=== PATIENT | female | born 1945 | race Caucasian/White ===

== ENCOUNTER 2020-08-20 01:07 | Emergency (ER) | payer MEDICARE, OTHER ==
[~2020-08-20] VITALS: Ht 162.6 cm; Wt 89.8 kg
--- NOTE | 2020-08-20 01:24 | ED Fall/Injury ---
General Chief Complaint: Trauma-Non Activation Stated Complaint: FALL Source: patient (DIFFICULT HISTORIAN) History of Present Illness Date Seen by Provider: August 20, 2020 Time Seen by Provider: 01:07 Initial Comments PT ARRIVES VIA EMS--PT IS HERE VISITING FAMILY FOR A GRADUATION--PT LIVES IN [place], [place] PT STATES SHE WAS PUTTING LOTION ON HER LEGS, AND SPILLED LOTION ON THE FLOOR AND WAS TRYING TO CLEAN IT UP, AND SLIPPED ON A RUG AND FELL, LANDING MOSTLY ON HER RIGHT SIDE HIT HER HEAD ON A SUITCASE, BUT DENIES LOSS OF CONSCIOUSNESS. EVENT WAS NOT WITNESSED, AND IS UNKNOWN HOW LONG SHE LAID OR THE FLOOR OR WHAT TIME THIS HAPPENED TONIGHT PT C/O PAIN TO NECK-MOSTLY THE RIGHT SIDE--CERVICAL COLLAR IS IN PLACE BY EMS. HAS CHRONIC NECK PAIN C/O MID AND LOWER BACK PAIN --PT WITH CHRONIC BACK PAIN AND REPORTS THAT SHE HAS HAD 4 OR 5 PRIOR BACK SURGERIES C/O RIGHT HIP PAIN --NO PRIOR SURGERY TO RIGHT HIP. HAS PRIOR LEFT HIP FRACTURE WITH PINNING. DENIES PARESTHESIAS OR MOTOR DEFICITS DENIES HEADACHE NO VISION CHANGES NO ABDOMINAL PAIN NO NAUSEA/VOMITING NO CHEST PAIN NO SHORTNESS OF BREATH PT REPORTS SHE HAS FALLEN 4-5 TIMES IN THE LAST 6 MONTHS, USES A CANE PT IS ON MORPHINE DAILY FOR CHRONIC PAIN COMPLAINTS, WELL BACLOFEN. Allergies and Home Medications Allergies Coded Allergies: fentanyl (Verified Allergy, Unknown, 08/20/20) nalbuphine (Verified Allergy, Unknown, 08/20/20) Patient Home Medication List Home Medication List Reviewed: Yes Review of Systems Review of Systems Constitutional: no symptoms reported Eyes: No Symptoms Reported Ears, Nose, Mouth, Throat: no symptoms reported Respiratory: no symptoms reported Cardiovascular: no symptoms reported Gastrointestinal: no symptoms reported Genitourinary: no symptoms reported Musculoskeletal: see HPI Skin: no symptoms reported Psychiatric/Neurological: No Symptoms Reported Past Mmstiwo-Dwhpul-Ppvlef Hx Past Med/Social Hx: Reviewed and Corrections made Patient Social History Alcohol Use: Denies Use Drug of Choice: DENIES Smoking Status: Never a Smoker Past Medical History Surgeries: Yes Bowel Surgery, Gallbladder, Orthopedic Respiratory: Yes (STATES SHE NEVER SMOKED; SARCOIDOSIS) COPD Cardiac: Yes High Cholesterol, Hypertension 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 Genitourinary: No Gastrointestinal: Yes (HAS PERMANENT ILEOSTOMY FOR DIVERTICULITIS AND BOWEL OBSTRUCTION) Obstructive Bowel, Diverticulosis Musculoskeletal: Yes (MULTIPLE BACK SURGERIES; L HIP FX/PINNING;L ARM FX/PLATE; FREQ FALLS/CANE) Arthritis, Chronic Back Pain (AND NECK PAIN ), Fractures, Gout Endocrine: Yes (OBESITY; LOW MAGNESIUM) Hypothyroidsim HEENT: Yes Hearing Impairment: Hard of Hearing, Bilateral Hearing Aide Cancer: No Family Medical History PAST SURGICAL HISTORY: -CHOLECYSTECTOMY -PERMANENT ILEOSTOMY -4 OR 5 BACK SURGERIES -LEFT ARM FRACTURE WITH PLATES -LEFT HIP FRACTURE WITH PINNING Physical Exam Vital Signs Vital Signs - First Documented 08/20/20 01:07 Temp 36.6 Pulse 75 Resp 16 B/P (MAP) 173/89 (117) Pulse Ox 100 O2 Delivery Room Air Capillary Refill : Height, Weight, BMI Height: '" Weight: lbs. oz. kg; BMI Method: General Appearance: WD/WN, no apparent distress, obese, other (DOES NOT APPEAR TO BE IN ANY DISCOMFORT OR DISTRESS,. PT IS VERY TALKATIVE. ) HEENT: PERRL/EOMI, other (BILATERAL HEARING AIDS IN PLACE. EDENTULOUS) Neck: other (IN CERVICAL COLLAR ON ARRIVAL) Respiratory: normal breath sounds, no respiratory distress, no accessory muscle use, other (DIFFUSE CHEST WALL TENDERNESS) Gastrointestinal: normal bowel sounds, soft; No distended; tenderness (DIFFUSE MID AND UPPER ABDOMINAL TENDERNESS. ILEOSTOMY IN RLQ PRESENT AND APPEARS INTACT WITH NORMAL LIQUID STOOL) Extremities: other (TENDERNESS TO RIGHT HIP. NO SHORTENING OR ROTATION. DISTAL MOTOR/SENSORY/VASCULAR INTACT. UNABLE TO DETERMINE IF EDEMA IS PRESENT DUE TO BODY HABITUS) Neurologic/Psychiatric: no motor/sensory deficits, alert, normal mood/affect, oriented x 3 Skin: normal color, warm/dry, other (EXTENSIVE SORES/SCARS/SCABS TO ARMS, LEGS AND ESPECIALLY TO ABDOMEN--TYPICAL APPEARANCE OF "PICKING" . NO EVIDENCE OF ACUTE TRAUMA FROM THE FALL TONIGHT, ANYWHERE ON BODY--NO BRUISING, ABRASIONS,LACERATIONS, ETC. ) Fam Coma Score Best Eye Response: (4) Open Spontaneously Best Verbal Response: (5) Oriented Best Motor Response: (6) Obeys Commands Fam Total: 15 Progress/Results/Core Measures Results/Orders Lab Results Laboratory Tests Test 08/20/20 01:25 08/20/20 03:00 Range/Units White Blood Count 5.2 4.3-11.0 10^3/uL Red Blood Count 3.59 L 3.80-5.11 10^6/uL Hemoglobin 11.2 L 11.5-16.0 g/dL Hematocrit 35 35-52 % Mean Corpuscular Volume 98 80-99 fL Mean Corpuscular Hemoglobin 31 25-34 pg Mean Corpuscular Hemoglobin Concent 32 32-36 g/dL Red Cell Distribution Width 13.5 10.0-14.5 % Platelet Count 201 130-400 10^3/uL Mean Platelet Volume 9.8 9.0-12.2 fL Immature Granulocyte % (Auto) 0 % Neutrophils (%) (Auto) 40 L 42-75 % Lymphocytes (%) (Auto) 44 12-44 % Monocytes (%) (Auto) 11 0-12 % Eosinophils (%) (Auto) 6 0-10 % Basophils (%) (Auto) 0 0-10 % Neutrophils # (Auto) 2.1 1.8-7.8 10^3/uL Lymphocytes # (Auto) 2.3 1.0-4.0 10^3/uL Monocytes # (Auto) 0.6 0.0-1.0 10^3/uL Eosinophils # (Auto) 0.3 0.0-0.3 10^3/uL Basophils # (Auto) 0.0 0.0-0.1 10^3/uL Immature Granulocyte # (Auto) 0.0 0.0-0.1 10^3/uL Prothrombin Time 13.2 12.2-14.7 SEC INR Comment 1.0 0.8-1.4 Activated Partial Thromboplast Time 28 24-35 SEC Sodium Level 139 135-145 MMOL/L Potassium Level 4.2 3.6-5.0 MMOL/L Chloride Level 105 98-107 MMOL/L Carbon Dioxide Level 24 21-32 MMOL/L Anion Gap 10 5-14 MMOL/L Blood Urea Nitrogen 9 7-18 MG/DL Creatinine 0.77 0.60-1.30 MG/DL Estimat Glomerular Filtration Rate > 60 BUN/Creatinine Ratio 12 Glucose Level 89 70-105 MG/DL Calcium Level 9.5 8.5-10.1 MG/DL Corrected Calcium 9.7 8.5-10.1 MG/DL Magnesium Level 1.5 L 1.6-2.4 MG/DL Total Bilirubin 0.3 0.1-1.0 MG/DL Aspartate Amino Transf (AST/SGOT) 29 5-34 U/L Alanine Aminotransferase (ALT/SGPT) 15 0-55 U/L Alkaline Phosphatase 100 40-136 U/L Myoglobin 177.2 H 10.0-92.0 NG/ML Total Protein 6.8 6.4-8.2 GM/DL Albumin 3.7 3.2-4.5 GM/DL Amylase Level 23 L 25-125 U/L Lipase 5 L 8-78 U/L Urine Color YELLOW Urine Clarity CLEAR Urine pH 6.5 5-9 Urine Specific Ione 1.015 L 1.016-1.022 Urine Protein NEGATIVE NEGATIVE Urine Glucose (UA) NEGATIVE NEGATIVE Urine Ketones NEGATIVE NEGATIVE Urine Nitrite NEGATIVE NEGATIVE Urine Bilirubin NEGATIVE NEGATIVE Urine Urobilinogen 0.2 < = 1.0 MG/DL Urine Leukocyte Esterase 1+ H NEGATIVE Urine RBC (Auto) TRACE-I NEGATIVE Urine RBC 0-2 /HPF Urine WBC 2-5 /HPF Urine Squamous Epithelial Cells 0-2 /HPF Urine Crystals NONE /LPF Urine Bacteria TRACE /HPF Urine Casts NONE /LPF Urine Mucus NEGATIVE /LPF Urine Culture Indicated YES Micro Results Microbiology 08/20/20 Urine Culture - Final, Complete 3 or more isolates My Orders Orders - STEVE CHACON DO Ed Iv/Invasive Line Start (08/20/20 01:16) Ekg Tracing (08/20/20:16) Monitor-Rhythm Ecg Trace Only (08/20/20 01:16) Ct Head/Cervical Spine Wo (08/20/20:16) Chest 1 View, Ap/Pa Only (08/20/20:16) Pelvis With Right Hip 2-3views (08/20/20 01:16) Amylase (08/20/20 01:16) Cbc With Automated Diff (08/20/20:16) Comprehensive Metabolic Panel (08/20/20:16) Lipase (08/20/20:16) Magnesium (08/20/20:16) Protime With Inr (08/20/20:16) Partial Thromboplastin Time (08/20/20 01:16) Ua Culture If Indicated (08/20/20 01:16) Myoglobin Serum (08/20/20 01:16) Ct Chest/Abdomen/Pelvis W (08/20/20 01:16) Ct Thoracic/Lumbar Spine Wo (08/20/20 01:16) Urine Culture (08/20/20 03:00) Ketorolac Injection (Toradol Injection) (08/20/20 04:15) Medications Given in ED Vital Signs/I&O 08/20/20 08/20/20 08/20/20 01:07 01:07 04:50 Temp 36.6 36.6 36.6 Pulse 75 75 80 Resp 16 16 16 B/P (MAP) 173/89 (117) 173/89 (117) 128/108 (117) Pulse Ox 100 100 O2 Delivery Room Air Room Air Progress Progress Note : Progress Note CERVICAL COLLAR REMOVED AFTER RECEIVING CT SCAN REPORT PT COMPLAINS OF PAIN ALL OVER WITH ANY MOVEMENTS PT VOLUNTARILY ROLLED ONTO HER RIGHT SIDE TO GET ON AND OFF THE BEDPAN ( SIDE OF REPORTED PAIN/INJURY WHEN SHE FELL TONIGHT) UNEVENTFUL ER STAY Initial ECG Impression Date: August 20, 2020 Initial ECG Impression Time: 01:18 Initial ECG Rate: 67 Initial ECG Rhythm: Normal Sinus (IVCD/INCOMPLETE RBBB) Initial ECG Comparisson: No Previous ECG Available Diagnostic Imaging Comments CXR--NO ACUTE PROCESS, PENDING RADIOLOGIST REVIEW PELVIS AND RIGHT HIP XRAYS--NO ACUTE PROCESS, LEFT HIP HARDWARE IN PLACE. 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 CT THORACIC/LUMBAR SPINE--PER [facility] VIA FAX AT [phone] NO ACUTE PROCESS, SEVERE DEGENERATIVE SPONDYLOSIS CT CHEST/ABDOMEN/PELVIS--PER [facility] VIA FAX AT [id number] NO ACUTE TRAUMATIC INJURY TO CHEST/ABDOMEN/PELVIS, PARASTOMAL HERNIA WITH EXCESS SMALL BOWEL Reviewed: Reviewed by Me Departure Impression Primary Impression: S/P FALL FROAM STANDING Additional Impressions: Minor head injury without loss of consciousness CHEST WALL AND ABDOMINAL CONTUSION CERVICAL SPINE STRAIN EXACERBATION OF CRONIC NECK PAIN Back strain Exacerbation of chronic back pain Contusion of right hip Disposition: HOME, SELF-CARE Condition: Stable Departure-Patient Inst. Referrals: UNKNOWN (PCP) Primary Care Physician Patient Instructions: Back Muscle Strain (DC), CHEST CONTUSION, CHRONIC PAIN, Cervical Muscle Strain (DC), Contusion (DC), Minor Head Injury (DC), Preventing Falls, Preventing Falls in the Older Adult Add. Discharge Instructions: ALTERNATE ICE AND HEAT TO SORE AREAS AT 20 MINUTE INTERVALS USE YOUR CANE AT ALL TIMES TAKE YOUR REGULAR MORPHINE PRESCRIBED FOR PAIN FOLLOW UP WITH YOUR DR IN 1 WEEK IF NO BETTER All discharge instructions reviewed with patient and/or family. Voiced understanding. STEVE CHACON DO August 20, 2020 01:24
[2020-08-20 01:30] LABS: BASOPHILS % (AUTO) 0 % (0-10); EOSINOPHILS # (AUTO) 0.3 10^3/uL (0.0-0.3); EOSINOPHILS % (AUTO) 6 % (0-10); HEMATOCRIT 35 % (35-52); HEMOGLOBIN 11.2 g/dL (11.5-16.0); LYMPHOCYTES # (AUTO) 2.3 10^3/uL (1.0-4.0); LYMPHOCYTES % (AUTO) 44 % (12-44); MEAN CORPUSCULAR HEMOGLOBIN 31 pg (25-34); MEAN CORPUSCULAR HGB CONC 32 g/dL (32-36); MEAN CORPUSCULAR VOLUME 98 fL (80-99); MEAN PLATELET VOLUME 9.8 fL (9.0-12.2); MONOCYTES # (AUTO) 0.6 10^3/uL (0.0-1.0); MONOCYTES % (AUTO) 11 % (0-12); NEUTROPHILS # (AUTO) 2.1 10^3/uL (1.8-7.8); NEUTROPHILS % (AUTO) 40 % (42-75); PLATELET COUNT 201 10^3/uL (130-400); WHITE BLOOD COUNT 5.2 10^3/uL (4.3-11.0)
[2020-08-20 01:47] LABS: ALBUMIN 3.7 GM/DL (3.2-4.5)
[2020-08-20 01:48] LABS: CHLORIDE 105 MMOL/L (98-107); POTASSIUM 4.2 MMOL/L (3.6-5.0); PROTHROMBIN TIME PATIENT 13.2 SEC (12.2-14.7); SODIUM 139 MMOL/L (135-145)
[2020-08-20 01:49] LABS: AMYLASE 23 U/L (25-125); CALCIUM 9.5 MG/DL (8.5-10.1)
[2020-08-20 01:50] LABS: GLUCOSE 89 MG/DL (70-105); TOTAL PROTEIN 6.8 GM/DL (6.4-8.2)
[2020-08-20 01:51] LABS: CARBON DIOXIDE 24 MMOL/L (21-32)
[2020-08-20 01:52] LABS: BILIRUBIN,TOTAL 0.3 MG/DL (0.1-1.0)
[2020-08-20 01:53] LABS: ALKALINE PHOSPHATASE 100 U/L (40-136)
[2020-08-20 01:54] LABS: CREATININE SERUM 0.77 MG/DL (0.60-1.30); GFR ESTIMATED > 60
[2020-08-20 01:55] LABS: BUN/CREATININE RATIO 12
[2020-08-20 01:56] LABS: ALANINE AMINOTRANSFERASE 15 U/L (0-55); MAGNESIUM 1.5 MG/DL (1.6-2.4)
[2020-08-20 01:58] LABS: LIPASE 5 U/L (8-78)
[2020-08-20 03:07] LABS: BILIRUBIN,URINE NEGATIVE (NEGATIVE); CLARITY,URINE CLEAR; COLOR,URINE YELLOW; GLUCOSE, URINE (UA) NEGATIVE (NEGATIVE); KETONES,URINE NEGATIVE (NEGATIVE); LEUKOCYTE ESTERASE ,URINE 1+ (NEGATIVE); NITRITE,URINE NEGATIVE (NEGATIVE); PH,URINE 6.5 (5-9); PROTEIN,URINE NEGATIVE (NEGATIVE)
[2020-08-20 03:15] LABS: BACTERIA,URINE TRACE /HPF; RBC,URINE 0-2 /HPF; SQUAMOUS EPITHELIAL CELL,UR 0-2 /HPF
[2020-08-20] MEDS ORDERED: KETOROLAC 30 MG/ML VIAL IVP ONE (04:15)
[2020-08-20 04:50] VITALS: BP 128/108
--- NOTE | 2020-08-20 07:08 | Diagnostic Imaging Report ---
PROCEDURE: CT head and CT cervical spine without contrast. TECHNIQUE: Multiple contiguous axial images were obtained through the brain and cervical spine without the use of intravenous contrast. Sagittal and coronal reformations through the cervical spine were then performed. Auto Exposure Controls were utilized during the CT exam to meet ALARA standards for radiation dose reduction. Indication: Fall with head and neck pain. Comparison: None. Discussion: Head: No intracranial hemorrhage, mass, midline shift, or hydrocephalus. The ventricles and sulci are normal size and configuration for age. The visualized orbits, paranasal sinuses, mastoid air cells, and calvarium are unremarkable. Cervical spine: Advanced degenerative disease is noted diffusely throughout the cervical spine. There is likely severe central canal stenosis at the C5-C6 level. No acute fracture or subluxation. Paraspinal soft tissues are unremarkable. Impression: 1. No acute intracranial abnormality identified. 2. Advanced degenerative disease noted diffusely throughout the cervical spine. No acute fracture. 3. Agree with preliminary report. Dictated by: Dictated on workstation # [id number]
--- NOTE | 2020-08-20 07:48 | Diagnostic Imaging Report ---
EXAMINATION: Chest radiograph, portable AP view. DATE: 08/20/2020 3:02 AM INDICATION: 75-year-old female, fall. Chest pain. COMPARISON: None. FINDINGS: Heart size and mediastinal contours are unremarkable. There is no identified pneumothorax. There is no large pleural effusion. There is no identified focal airspace consolidation. There are multilevel degenerative changes of the spine. There are right acromioclavicular degenerative changes. IMPRESSION: No identified acute cardiopulmonary abnormality. Dictated by: Dictated on workstation # [id number]
--- NOTE | 2020-08-20 07:49 | Diagnostic Imaging Report ---
EXAMINATION: Pelvis, single view. Right hip, 2 additional views. COMPARISON: None. HISTORY: 75-year-old female, fall. Pelvic and hip pain. FINDINGS: There are intact fixation screws at the level of the left proximal femur. The bones appear demineralized. The pubic symphysis and sacroiliac joints are normally aligned. There is moderate to severe joint space loss of the left hip and mild to moderate joint space loss of the right hip. There are osteophytes associated with both hip joints. There are degenerative changes of the lumbar spine. There is a right lower quadrant ostomy. There is no identified acute fracture. IMPRESSION: 1. The bones appear demineralized without radiographically apparent fracture at the level of the pelvis or either hip. 2. 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 Dictated by: Dictated on workstation # [id number]
--- NOTE | 2020-08-20 08:05 | Diagnostic Imaging Report ---
PROCEDURE: CT chest, abdomen, and pelvis with contrast. TECHNIQUE: Multiple contiguous axial images were obtained through the chest, abdomen, and pelvis after the administration of intravenous contrast. Auto Exposure Controls were utilized during the CT exam to meet ALARA standards for radiation dose reduction. Date: August 20, 2020. Indication: 75-year-old female, fall. Chest, abdomen, and pelvic pain. Comparison: None. Findings: There is a 2 mm calcified right lower lobe granuloma on axial image 49 and a calcified 3 mm right lower lobe granuloma on axial image 48. There is a 3 mm noncalcified right middle lobe pulmonary nodule on axial image 38. There is a pleurally based 3 mm nodule in the right lung on axial image 36. There is a 2 mm right upper lobe pulmonary nodule on axial image 29. There is a calcified 2 mm right upper lobe granuloma on axial image 20. There are also subcentimeter calcified left-sided granulomas. There are mild linear opacities in left lower lobe likely relating to focal atelectasis. There is minimal dependent atelectasis in the right lower lobe. There is no additional lung consolidation. There is no lung mass. There is no pneumothorax. There is no pleural effusion. There is no evidence of acute aortic injury. There is no mediastinal hematoma. The heart is not enlarged. There is no pericardial effusion. There are calcified subcarinal and left hilar lymph nodes compatible with sequela of prior granulomatous disease. The liver is unremarkable in size and contour. There is no identified liver laceration. There is no perihepatic fluid. There is no biliary ductal dilation. The pancreatic parenchyma is unremarkable. There is no evidence of an acute splenic injury. The spleen is not enlarged. The adrenal glands are unremarkable. There is mild atrophy of the left kidney. There is no . The urinary bladder is grossly unremarkable in appearance. There are postoperative changes at the level of the mid sigmoid colon. The remainder of the colon appears absent. There is a right lower quadrant ostomy. There is a small hiatal hernia. There is no free intraperitoneal air. There is no focal fluid collection. There is no sizable volume free pelvic fluid. There is a small fat-containing anterior abdominal wall hernia. There are atherosclerotic calcifications. There is no identified abnormally enlarged lymph node in the abdomen or pelvis meeting CT size criteria for adenopathy. There are fixation screws in the left proximal femur which are intact. There is osteoarthritis of the left greater than right hips. There is no identified acute bony abnormality of either hip or the pelvis. There are postoperative changes of the lumbar spine. There are multilevel severe degenerative changes of the spine. The bones do appear potentially demineralized. There is no identified acute fracture. Impression: 1. No identified acute post traumatic abnormality at the level of the chest, abdomen, or pelvis. Dictated by: Dictated on workstation # [id number]
--- NOTE | 2020-08-20 08:10 | Diagnostic Imaging Report ---
PROCEDURE: CT thoracic and lumbar spine without contrast. TECHNIQUE: Multiple contiguous axial images were obtained through the thoracic and lumbar spine without the use of intravenous contrast. Sagittal and coronal reformations were then performed.All CT scans use one or more of the following dose optimizing techniques: automated exposure control, MA and/or KvP adjustment based on a patient size and exam type, or iterative reconstruction. Date: August 20, 2020. Indication: 75-year-old female, fall. Thoracic and lumbar spine pain. Comparison: None. Findings: There are multilevel advanced disc degenerative changes of the lower thoracic spine. CT is limited for assessment of disc pathology as well as evaluation of additional nonbony causes of pathology in the spinal canal and evaluation of spinal and foraminal stenosis. There is no identified acute fracture of the thoracic spine. S1-S2 is labeled as having a disc space. This makes T12 rib bearing. There are multilevel disc and facet degenerative changes of the lumbar spine. There are bilateral laminectomy changes at L3-L4, L4-L5, and L5-S1. There are bilateral sacroiliac degenerative changes. Impression: 1. No identified acute fracture of the thoracic or lumbar spine. 2. Multilevel advanced degenerative changes of the thoracic and lumbar spine. Dictated by: Dictated on workstation # [id number]
== END 2020-08-20 04:53 | disposition home or self-care (01) ==
LOC: ER 01:11
DX: S09.90XA Unspecified injury of head, initial encounter (principal); S16.1XXA Strain of muscle, fascia and tendon at neck level, initial encounter; S39.012A Strain of muscle, fascia and tendon of lower back, initial encounter; S20.219A Contusion of unspecified front wall of thorax, initial encounter; S30.1XXA Contusion of abdominal wall, initial encounter; S70.01XA Contusion of right hip, initial encounter; I10 Essential (primary) hypertension; J44.9 Chronic obstructive pulmonary disease, unspecified; E66.9 Obesity, unspecified; Z88.5 Allergy status to narcotic agent; Z88.8 Allergy status to other drugs, medicaments and biological substances; Z93.2 Ileostomy status; Z98.890 Other specified postprocedural states; Z79.891 Long term (current) use of opiate analgesic; Z79.899 Other long term (current) drug therapy; W01.198A Fall on same level from slipping, tripping and stumbling with subsequent striking against other object, initial encounter
CPT/HCPCS: 36415; 70450; 71045; 71260; 72125; 72128; 72131; 74177; 80053; 81000; 82150; 83690; 83735; 83874; 85025; 85610; 85730; 87088; 93005; 93041; 96374